=== PATIENT | female | born 1990 | race Caucasian/White ===

== ENCOUNTER → 2016-10-30 | Outpatient (CLI) | payer BC, OTHER ==
[2016-10-30 12:46] LABS: BASO % 0.7 % (0.0-1.0); EOS % 1.2 % (0.0-3.0); LARGE UNSTAINED CELL # 0.1 K/mm3 (0.0-0.4); LARGE UNSTAINED CELL % 2.7 % (0.0-4.0); LYMPH # 1.4 K/mm3 (1.5-6.5); LYMPH % 41.7 % (24.0-44.0); MEAN CORPUSCULAR HEMOGLOBIN 32.5 pg (27.0-33.0); MEAN CORPUSCULAR VOLUME 95.4 fl (80.0-96.0); MONO # 0.3 K/mm3 (0.0-0.8); NEUTROPHILS # 1.5 K/mm3 (1.8-7.7); NEUTROPHILS % 45.8 % (36.0-66.0); PLATELET COUNT, AUTOMATED 183 k/mm3 (150-450); RED CELL DISTRIBUTION WIDTH 12.2 % (11.5-14.5); WHITE BLOOD COUNT 3.3 K/mm3 (4.0-10.0)
[2016-10-30 13:27] LABS: ALBUMIN 4.3 GM/DL (3.2-5.2); ALBUMIN/GLOBULIN RATIO 1.43 (1.00-1.93); ALKALINE PHOSPHATASE 72 U/L (45-117); ALT/SGPT 39 U/L (12-78); ANION GAP 7 MEQ/L (8-16); AST/SGOT 24 U/L (15-37); BILIRUBIN,TOTAL 0.6 MG/DL (0.2-1.0); BLOOD UREA NITROGEN 21 MG/DL (7-18); CALCIUM LEVEL 8.9 MG/DL (8.5-10.1); CARBON DIOXIDE LEVEL 25 MEQ/L (21-32); CHLORIDE LEVEL 109 MEQ/L (98-107); CREATININE FOR GFR 1.13 MG/DL (0.55-1.02); GLOMERULAR FILTRATION RATE > 60.0 (>60); GLUCOSE, FASTING 79 MG/DL (70-105); POTASSIUM SERUM 4.2 MEQ/L (3.5-5.1); SODIUM LEVEL 141 MEQ/L (136-145); TOTAL PROTEIN 7.3 GM/DL (6.4-8.2)
[2016-10-30 13:44] LABS: FOLATE 13.6 NG/ML; VITAMIN B12 LEVEL 515 PG/ML
== END ==
LOC: M LAB 11:41
PROVIDERS: ATTEND Physician Assistant Medical
DX: R51 Headache (principal)

== ENCOUNTER → 2017-05-31 | Outpatient (REF) | payer OTHER ==
[2017-05-31 15:20] LABS: TOTAL 25(OH) VITAMIN D 25.3 NG/ML (30.0-100.0)
== END ==
LOC: M LABDRAW1 11:06
DX: R53.83 Other fatigue (principal); E55.9 Vitamin D deficiency, unspecified

== ENCOUNTER 2018-03-30 16:02 | Emergency (ER) | payer BC, OTHER | END 2018-03-30 17:07 | disposition home or self-care (01) | LOC: M ED 16:02 | DX: S00.81XA Abrasion of other part of head, initial encounter (principal); X58.XXXA Exposure to other specified factors, initial encounter; Y92.89 Other specified places as the place of occurrence of the external cause; Z79.899 Other long term (current) drug therapy; Z79.2 Long term (current) use of antibiotics | CPT/HCPCS: 99283 ==

== ENCOUNTER → 2018-05-07 | Outpatient (REF) | payer OTHER ==
[~2018-05-07] MED LIST: DOXY100T; KEFL500C17 PO; PROP10TA56; TOPI50TA9; VENL75CA47
== END ==
LOC: M LABDRAW1 09:23
PROVIDERS: ATTEND Physician Assistant Medical
DX: E55.9 Vitamin D deficiency, unspecified (principal)

== ENCOUNTER → 2018-11-11 | Outpatient (REF) | payer OTHER ==
[2018-11-11 19:16] LABS: APPEARANCE, URINE CLEAR (CLEAR); BACTERIA, URINE AUTO NEGATIVE (NEGATIVE); BILIRUBIN, URINE AUTO NEGATIVE (NEGATIVE); BLOOD, URINE BLOOD NEGATIVE (NEGATIVE); COLOR, URINE YELLOW (YELLOW); GLUCOSE, URINE (UA) AUTO NEGATIVE (NEGATIVE); KETONE, URINE AUTO NEGATIVE (NEGATIVE); LEUKOCYTE ESTERASE, URINE AUTO TRACE (NEGATIVE); NITRITE, URINE AUTO NEGATIVE (NEGATIVE); PROTEIN, URINE AUTO NEGATIVE (NEGATIVE); RBC, URINE AUTO 1 /HPF (0-3); SPECIFIC GRAVITY URINE AUTO 1.024 (1.002-1.035); SQUAMOUS EPITHELIAL CELL UR AU 5 /HPF (0-6); UROBILINOGEN, URINE AUTO 0.2 mg/dL (0.0-2.0); WBC, URINE AUTO 3 /HPF (0-3)
== END ==
LOC: M LAB REF 17:22
PROVIDERS: ATTEND Physician Assistant Medical
DX: N39.0 Urinary tract infection, site not specified (principal)

== ENCOUNTER → 2018-12-09 | Outpatient (REF) | payer OTHER ==
[2018-12-09 20:10] LABS: CHLAMYDIA DNA AMPLIFICATION NEGATIVE (NEGATIVE); GC DNA AMPLIFICATION NEGATIVE (NEGATIVE)
== END ==
LOC: M LAB REF 16:26
PROVIDERS: ATTEND Nurse Practitioner Family
DX: R30.0 Dysuria (principal)

== ENCOUNTER 2019-02-13 03:17 | Emergency (ER) | payer BC, OTHER ==
[~2019-02-13] VITALS: Ht 167.6 cm; Wt 77.3 kg
[2019-02-13] MEDS ORDERED: ZOLO100T PO (03:24)
[2019-02-13] MEDS ORDERED: AIMO70IN SC (03:24)
[2019-02-13] MEDS ORDERED: ACETAMINOPHEN TAB 650MG DOSE (2X325MG) PO ONE (03:45)
[2019-02-13] MEDS ORDERED: CIPRODEX OTIC (03:55)
[2019-02-13] MEDS ORDERED: AUGM875T28 PO (03:55)
[2019-02-13] MEDS ORDERED: CIPRODEX OTIC SUSP 7.5ML AU ONE (04:00)
[2019-02-13] MEDS ORDERED: AUGMENTIN 875 MG TAB PO ONE (04:00)
[2019-02-13 04:11] VITALS: BP 122/60
== END 2019-02-13 04:45 | disposition home or self-care (01) ==
LOC: M ED 03:17
DX: H60.90 Unspecified otitis externa, unspecified ear (principal); H66.91 Otitis media, unspecified, right ear

== ENCOUNTER → 2019-06-11 | Outpatient (REF) | payer BC, OTHER ==
[~2019-06-11] MED LIST changes: +AIMO70IN SC; +AUGM875T28 PO; +CIPRODEX OTIC; +ZOLO100T PO
== END ==
LOC: M LABDRAW1 13:29
PROVIDERS: ATTEND Physician Assistant Medical
DX: E55.9 Vitamin D deficiency, unspecified (principal)

== ENCOUNTER → 2020-04-19 | Outpatient (CLI) | payer BC, OTHER ==
[2020-04-19 15:11] LABS: BASO % 0.5 % (0.0-1.0); EOS # 0.1 10^3/uL (0.0-0.5); EOS % 2.2 % (0.0-3.0); HEMATOCRIT 39.8 % (36.0-47.0); HEMOGLOBIN 12.8 g/dl (12.0-15.5); LYMPH # 1.9 10^3/uL (1.5-5.0); LYMPH % 32.8 % (24.0-44.0); MEAN CORPUSCULAR HEMOGLOBIN 30.1 pg (27.0-33.0); MEAN CORPUSCULAR HGB CONC 32.2 g/dl (32.0-36.5); MEAN CORPUSCULAR VOLUME 93.6 fl (80.0-96.0); MONO # 0.5 10^3/uL (0.0-0.8); MONO % 8.7 % (0.0-5.0); NEUTROPHILS # 3.2 10^3/uL (1.5-8.5); NEUTROPHILS % 55.5 % (36.0-66.0); PLATELET COUNT, AUTOMATED 232 10^3/uL (150-450); RED BLOOD COUNT 4.25 10^6/uL (4.00-5.40); WHITE BLOOD COUNT 5.9 10^3/uL (4.0-10.0)
[2020-04-19 15:50] LABS: BLOOD UREA NITROGEN 14 MG/DL (7-18); CARBON DIOXIDE LEVEL 28 MEQ/L (21-32); CHLORIDE LEVEL 107 MEQ/L (98-107); FREE T4 0.85 NG/DL (0.76-1.46); GLOMERULAR FILTRATION RATE > 60.0 (>60); GLUCOSE, FASTING 87 MG/DL (70-100); POTASSIUM SERUM 4.4 MEQ/L (3.5-5.1); SODIUM LEVEL 141 MEQ/L (136-145)
[2020-04-19 15:53] LABS: TOTAL 25(OH) VITAMIN D 28.4 NG/ML (30.0-100.0)
== END ==
LOC: M PLALAB 14:10
PROVIDERS: ATTEND Physician Assistant
DX: F41.1 Generalized anxiety disorder (principal)

== ENCOUNTER 2020-07-12 19:50 | Emergency (ER) | payer BC, OTHER ==
[~2020-07-12] VITALS: Ht 167.6 cm; Wt 89.9 kg
[~2020-07-12 19:50] MED LIST changes: +CIPR7.5D5 OTIC; -CIPRODEX OTIC
[2020-07-12] MEDS ORDERED: ONDANSETRON 4 MG ORAL DISINTEGRATING TAB PO ONE (22:00)
[2020-07-12] MEDS ORDERED: MECLIZINE 25 MG TABLET PO ONE (22:00)
[2020-07-12] MEDS ORDERED: ONDA4TAB6 PO (22:02)
[2020-07-12] MEDS ORDERED: MECL1TAB31 PO (22:02)
[2020-07-12 22:14] VITALS: BP 139/89
[2020-07-12 22:58] LABS: RSV AMPLIFICATION NEGATIVE (NEGATIVE)
== END 2020-07-12 22:18 | disposition home or self-care (01) ==
LOC: M ED 19:50
DX: R51.9 Headache, unspecified (principal); Z79.899 Other long term (current) drug therapy
CPT/HCPCS: 87631; 99283; Q0162

== ENCOUNTER → 2021-08-09 | Outpatient (CLI) | payer BC, OTHER ==
[~2021-08-09] MED LIST changes: +MECL1TAB31 PO; +ONDA4TAB6 PO
[2021-08-09 17:04] LABS: ESTRADIOL 19.5 PG/ML; LUTEINIZING HORMONE 4.4 mIU/mL; PROGESTERONE 0.77 NG/ML
[2021-08-10 17:10] LABS: TESTOSTERONE FREE (DIRECT) 4.8 pg/mL (0.0-4.2)
== END ==
LOC: M PLALAB 11:55
PROVIDERS: ATTEND Obstetrics & Gynecology
DX: E34.9 Endocrine disorder, unspecified (principal)

== ENCOUNTER → 2021-11-14 | Outpatient (CLI) | payer BC, OTHER ==
[2021-11-14 17:48] LABS: ESTRADIOL 71.4 PG/ML; FOLLICLE STIMULATING HORMONE 7.9 mIU/mL; PROGESTERONE 0.47 NG/ML
== END ==
LOC: M PLALAB 14:27
PROVIDERS: ATTEND Obstetrics & Gynecology
DX: E34.9 Endocrine disorder, unspecified (principal); F52.0 Hypoactive sexual desire disorder; R53.83 Other fatigue

== ENCOUNTER → 2022-04-18 | Outpatient (CLI) | payer BC, OTHER ==
[2022-04-18 14:47] LABS: BASO # 0.1 10^3/uL (0.0-0.2); BASO % 0.8 % (0.0-1.0); EOS # 0.1 10^3/uL (0.0-0.5); EOS % 1.9 % (0.0-3.0); HEMATOCRIT 43.9 % (36.0-47.0); HEMOGLOBIN 14.1 g/dl (12.0-15.5); LYMPH # 2.1 10^3/uL (1.5-5.0); LYMPH % 32.7 % (24.0-44.0); MEAN CORPUSCULAR HEMOGLOBIN 30.6 pg (27.0-33.0); MEAN CORPUSCULAR HGB CONC 32.1 g/dl (32.0-36.5); MEAN CORPUSCULAR VOLUME 95.2 fl (80.0-96.0); MONO # 0.5 10^3/uL (0.0-0.8); MONO % 8.1 % (2.0-8.0); NEUTROPHILS # 3.6 10^3/uL (1.5-8.5); NEUTROPHILS % 56.2 % (36.0-66.0); PLATELET COUNT, AUTOMATED 246 10^3/uL (150-450); RED BLOOD COUNT 4.61 10^6/uL (4.00-5.40); WHITE BLOOD COUNT 6.4 10^3/uL (4.0-10.0)
[2022-04-18 15:12] LABS: C REACTIVE PROTEIN QUANTITATIV < 0.40 MG/DL (<1.0)
[2022-04-18 15:14] LABS: RHEUMATOID FACTOR QUANT < 3.5 IU/ML (<14)
[2022-04-18 16:01] LABS: ERYTHROCYTE SEDIMENTATION RATE 7 mm/hr (0-20)
[2022-04-20 15:08] LABS: ANTINUCLEAR ANTIBODIES DIRECT Negative (Negative); SJOGREN'S ANTI SS-A <0.2 AI (0.0-0.9); SJOGREN'S ANTI SS-B <0.2 AI (0.0-0.9)
== END ==
LOC: M PLALAB 11:50
PROVIDERS: ATTEND Allergy & Immunology Allergy
DX: R21 Rash and other nonspecific skin eruption (principal)

== ENCOUNTER → 2023-03-29 | Day surgery (SDC) | payer BC, OTHER ==
[~2023-03-29] VITALS: Ht 167.6 cm; Wt 91.8 kg
[~2023-03-29] MED LIST changes: +BUPR150T12 PO; +LIDOCAINE 2% 100MG/5ML SDV (FOR ANES.) As Ordered ONE; +MECL-209 PO; -MECL1TAB31 PO; +NS 1,000 ML IV ONE; +SERT25TA21 PO; +TOPI-254; -TOPI50TA9; +propofoL 200 MG/20 ML VIAL As Ordered ONE
[2023-03-29 10:57] VITALS: BP 118/88; TEMP 97.2; O2SAT 97
== END | disposition home or self-care (01) ==
LOC: M OPP 08:53
PROVIDERS: ATTEND Internal Medicine Gastroenterology
DX: Z12.11 Encounter for screening for malignant neoplasm of colon (principal); Z80.0 Family history of malignant neoplasm of digestive organs

== ENCOUNTER 2023-08-08 07:05 | Emergency (ER) | payer BC, OTHER ==
[~2023-08-08] VITALS: Ht 167.6 cm; Wt 90.7 kg
[~2023-08-08 07:05] MED LIST changes: -LIDOCAINE 2% 100MG/5ML SDV (FOR ANES.) As Ordered ONE; -NS 1,000 ML IV ONE; +TOPI-21; -TOPI-254; -propofoL 200 MG/20 ML VIAL As Ordered ONE
[2023-08-08 07:06] VITALS: BP 139/92; TEMP 97
[2023-08-08] MEDS ORDERED: FREM225A SQ (07:10)
[2023-08-08 08:29] VITALS: O2SAT 99
[2023-08-08] MEDS: ACYCLOVIR 200 MG CAPSULE PO ONE (08:29)
[2023-08-08] MEDS ORDERED: ACYC1TAB PO (08:29)
[2023-08-08] MEDS ORDERED: HYDR-3713 PO (08:29)
[2023-08-08] MEDS: NORCO, ANEXSIA 5/325MG TABLET (HYDROcodone/ACETAMINOPHEN) PO ONE (08:29)
== END 2023-08-08 08:44 | disposition home or self-care (01) ==
LOC: M ED 07:05
DX: B02.9 Zoster without complications (principal); Z91.018 Allergy to other foods; Z91.040 Latex allergy status